=== PATIENT | female | born 2000 | race African-American/Black ===

== ENCOUNTER 2020-12-28 10:31 | Emergency (ER) | payer MEDICAID ==
[~2020-12-28] VITALS: Ht 160 cm; Wt 118.0 kg
[~2020-12-28 10:31] MED LIST: PREN-88 PO
[2020-12-28] MEDS ORDERED: FLUORESCEIN SODIUM 1MG/STRIP LEFTEYE ONE (12:15)
[2020-12-28] MEDS ORDERED: TETRACAINE 0.5% OPHTH DROPS 4ML LEFTEYE ONE (12:15)
[2020-12-28] MEDS ORDERED: HYDROCODONE/ACETAMINOPHEN 5/325MG TABLET PO ONE (12:15)
[2020-12-28] MEDS ORDERED: IBUP-2028 MT (14:13)
[2020-12-28] MEDS ORDERED: HYDR-4001 MT (14:13)
[2020-12-28 14:37] VITALS: BP 116/78
== END 2020-12-28 14:52 | disposition home or self-care (01) ==
LOC: ER 10:31
DX: S02.2XXA Fracture of nasal bones, initial encounter for closed fracture (principal); H57.12 Ocular pain, left eye; Y04.0XXA Assault by unarmed brawl or fight, initial encounter; Y93.89 Activity, other specified; Y92.89 Other specified places as the place of occurrence of the external cause
CPT/HCPCS: 70480; 99285